=== PATIENT | male | born 1985 | race Two or more races ===

== ENCOUNTER 2019-10-04 05:05 | Emergency (ER) | payer OTHER ==
[~2019-10-04] VITALS: Ht 175.3 cm; Wt 80.0 kg
[2019-10-04 05:07] VITALS: BP 158/75
[2019-10-04] MEDS ORDERED: KETOROLAC 60 MG/2 ML ONE (05:35)
[2019-10-04] MEDS ORDERED: HYDROmorphone 1 MG/ML, 1ML INJ ONE (05:35)
[2019-10-04] MEDS ORDERED: DIAZEPAM 5 MG TABLET ONE (05:35)
[2019-10-04] MEDS ORDERED: HYDROmorphone 1 MG/ML, 1ML INJ IM ONE (06:00)
[2019-10-04] MEDS ORDERED: DIAZEPAM 5 MG TABLET PO ONE (06:00)
[2019-10-04] MEDS ORDERED: KETOROLAC 60 MG/2 ML IM ONE (06:00)
--- NOTE | 2019-10-04 06:47 | NUR ---
RECEIVED REPORT FROM [facility]. PT UPRIGHT ON GURNEY WITH EYES CLOSED, RESPONDS APPROP TO STAFF, NAD, COMFORT MEASURES PROVIDED, CALL LIGHT WITHIN REACH.
--- NOTE | 2019-10-04 07:39 | NUR ---
Patient given discharge instructions and Rx, they have confirmed that they understand the instructions. Patient ambulatory with steady gait.
== END 2019-10-04 07:41 | disposition home or self-care (01) ==
LOC: ED 06:08
DX: M54.42 Lumbago with sciatica, left side (principal); Z72.89 Other problems related to lifestyle
CPT/HCPCS: 96372; 99283; J1170; J1885

== ENCOUNTER 2019-10-05 04:07 | Emergency (ER) | payer OTHER ==
[~2019-10-05] VITALS: Ht 175.3 cm; Wt 80.0 kg
--- NOTE | 2019-10-05 04:37 | NUR ---
assessment made. chart up for MD to see.
[2019-10-05] MEDS ORDERED: KETOROLAC 30 MG/1 ML ONE (05:41)
[2019-10-05] MEDS ORDERED: DIAZEPAM 5 MG TABLET ONE (05:41)
--- NOTE | 2019-10-05 05:46 | NUR ---
patient medicated for pain.
[2019-10-05] MEDS ORDERED: DIAZEPAM 5 MG TABLET PO ONE (06:00)
[2019-10-05] MEDS ORDERED: KETOROLAC 30 MG/1 ML IM ONE (06:00)
--- NOTE | 2019-10-05 06:12 | NUR ---
patient states still in a lot of pain, will notify .
[2019-10-05] MEDS ORDERED: HYDROmorphone 1 MG/ML, 1ML INJ ONE (06:17)
[2019-10-05] MEDS ORDERED: ONDANSETRON ODT 4 MG ONE (06:17)
--- NOTE | 2019-10-05 06:24 | NUR ---
patient re-medicated for pain. hooked to pulse ox.
[2019-10-05] MEDS ORDERED: ONDANSETRON ODT 4 MG PO ONE (06:30)
[2019-10-05] MEDS ORDERED: HYDROmorphone 1 MG/ML, 1ML INJ IM ONE (06:30)
--- NOTE | 2019-10-05 06:58 | NUR ---
re-evaluation done. patient states much better now. discharged with prescription and instruction. verbalized understanding.
[2019-10-05 06:59] VITALS: BP 119/75
== END 2019-10-05 07:02 | disposition home or self-care (01) ==
LOC: ED 06:59
DX: S39.012A Strain of muscle, fascia and tendon of lower back, initial encounter (principal); X58.XXXA Exposure to other specified factors, initial encounter; Y93.89 Activity, other specified; Y92.89 Other specified places as the place of occurrence of the external cause; Y99.8 Other external cause status
CPT/HCPCS: 96372; 99283; J1170; J1885; Q0162